=== PATIENT | male | born 1930 | race Caucasian/White ===

== ENCOUNTER 2019-04-14 23:28 | Emergency (ER) | payer OTHER ==
[~2019-04-14] VITALS: Ht 182.9 cm; Wt 111.1 kg
[2019-04-14] MEDS ORDERED: SULFASALAZINE500 M4 PO (23:38)
[2019-04-14] MEDS ORDERED: MOBIC15 MG PO (23:39)
[2019-04-14] MEDS ORDERED: CYMBALTA60 MG PO (23:39)
[2019-04-14] MEDS ORDERED: FLOMAX0.4 MG PO (23:40)
[2019-04-14] MEDS ORDERED: NEURONTIN 300M300 M2 PO (23:41)
[2019-04-14] MEDS ORDERED: FLORINEF ACETA0.1 MG PO (23:41)
[2019-04-14] MEDS ORDERED: MIDODRINE HCL10 MG PO (23:42)
[2019-04-14] MEDS ORDERED: PRAVACHOL20 MG PO (23:42)
[2019-04-14] MEDS ORDERED: SYMBICORT160 MCG/4. INH (23:43)
[2019-04-14] MEDS ORDERED: IPRAT-ALBUT 0.5-3 ML INH (23:43)
[2019-04-14] MEDS ORDERED: BREO ELLIPTA 11 EACH INH (23:44)
[2019-04-14] MEDS ORDERED: NAMENDA 10 MG T10 MG PO ×2 (23:45)
[2019-04-14] MEDS ORDERED: DEPAKOTE125 MG PO (23:46)
[2019-04-14] MEDS ORDERED: MELATONIN3 MG PO (23:46)
[2019-04-15 00:46] LABS: BASOPHILS 0.7 % (0.0-2.0); EOSINOPHILS 5.1 % (0.0-3.0); HEMATOCRIT 39.6 % (42.0-52.0); HEMOGLOBIN 12.9 gm/dL (14.0-18.0); LYMPHOCYTES 27.6 % (24.0-44.0); MCH 29.9 pg (26.0-34.0); MCHC 32.6 g/dL (28.0-37.0); MCV 91.6 fL (80.0-100.0); PLATELET COUNT 262 thou/uL (150-400); POLYS 58.6 % (36.0-66.0); RBC 4.33 mil/uL (4.50-6.00); RDW 15.2 % (10.5-14.5); WBC 10.3 thou/uL (4.0-11.0)
[2019-04-15 00:49] LABS: URINE BILIRUBIN NEGATIVE (Negative); URINE BLOOD NEGATIVE (Negative); URINE CLARITY CLEAR; URINE COLOR YELLOW; URINE GLUCOSE-RANDOM* NEGATIVE (Negative); URINE KETONES NEGATIVE (Negative); URINE LEUKOCYTES-REFLEX NEGATIVE (Negative); URINE NITRITE-REFLEX NEGATIVE (Negative); URINE PROTEIN (DIPSTICK) NEGATIVE (Negative); URINE SPECIFIC GRAVITY <= 1.005 (1.005-1.035); URINE UROBILINOGEN 0.2 E.U./dl (0.2-1.0)
[2019-04-15 00:53] LABS: ANION GAP 2 mmol/L (7-16); BUN 19 mg/dL (7-18); CALCIUM 8.8 mg/dL (8.5-10.1); CHLORIDE 99 mmol/L (98-107); CO2 31 mmol/L (21-32); GLUCOSE 129 mg/dL (74-106); POTASSIUM 3.3 mmol/L (3.5-5.1); SODIUM 132 mmol/L (136-145)
[2019-04-15 01:02] LABS: MAGNESIUM 2.4 mg/dL (1.8-2.4); TROPONIN-I <0.06 ng/mL (<0.06)
[2019-04-15 03:00] VITALS: BP 168/92
--- NOTE | 2019-04-15 14:30 | EKG ---
[place] [address] [facility] [place] [address] ELECTROCARDIOGRAM REPORT Name: MARLOYASMINEDENISE [facility] #: [facility]P [id number] ������������������ Admission: 04/14/19 ������������������ Attend Phys: Discharge: 04/15/19 ������������������ Date of : [birth year] Report #: [id number] ����������������������������������������������������������������� [id number] THIS REPORT FOR: //name// [facility] ED Test Date: 2019-04-14 Test Time: 23:56:05 Pat Name: DENISE CASAS Department: Room: Gender: Educational Administrator: BAILEE : 1930 Requested By: Jr Parry Order Number: [id number] MD: Armani Palomino Measurements Intervals [place] Rate: 85 P: 75 AL: 234 QRS: -68 QRSD: 137 T: 61 QT: 399 QTc: 475 Interpretive Statements Sinus rhythm Prolonged AL interval RBBB and LAFB No previous ECG available for comparison Electronically Signed On 04-15-2019 14:30:07 CDT by Armani Palomino [email or web address] ��������������������������������������������� <ELECTRONICALLY SIGNED> ���������������������������������������� By: Armani Palomino MD, [facility] ��������������������������������������������� 04/15/19 1430 2356 2356 Armani Palomino MD, FAC /EPI
== END 2019-04-15 03:00 | disposition home or self-care (01) ==
LOC: ER 23:28
PROVIDERS: Emergency Medicine
DX: S01.81XA Laceration without foreign body of other part of head, initial encounter (principal); I15.9 Secondary hypertension, unspecified; N18.9 Chronic kidney disease, unspecified; F32.9 Major depressive disorder, single episode, unspecified; I25.10 Atherosclerotic heart disease of native coronary artery without angina pectoris; J44.9 Chronic obstructive pulmonary disease, unspecified; M13.0 Polyarthritis, unspecified; G62.9 Polyneuropathy, unspecified; N40.0 Benign prostatic hyperplasia without lower urinary tract symptoms; Z88.1 Allergy status to other antibiotic agents; W18.39XA Other fall on same level, initial encounter; Y93.89 Activity, other specified; Y92.129 Unspecified place in nursing home as the place of occurrence of the external cause; Y99.8 Other external cause status

== ENCOUNTER 2019-05-05 22:49 | Inpatient (IN) | payer OTHER ==
[~2019-05-05] VITALS: Ht 182.9 cm; Wt 99.7 kg
[~2019-05-05 22:49] MED LIST: BREO ELLIPTA 11 EACH INH; CYMBALTA60 MG PO; DEPAKOTE125 MG PO; FLOMAX0.4 MG PO; FLORINEF ACETA0.1 MG PO; IPRAT-ALBUT 0.5-3 ML INH; MELATONIN3 MG PO; MIDODRINE HCL10 MG PO; MOBIC15 MG PO; NAMENDA 10 MG T10 MG PO; NEURONTIN 300M300 M2 PO; PRAVACHOL20 MG PO; SULFASALAZINE500 M4 PO; SYMBICORT160 MCG/4. INH
[2019-05-05 22:50] VITALS: BP 127/55
[2019-05-05 23:29] LABS: HEMATOCRIT 36.7 % (42.0-52.0); HEMOGLOBIN 11.7 gm/dL (14.0-18.0); MCH 28.7 pg (26.0-34.0); MCHC 31.8 g/dL (28.0-37.0); MCV 90.3 fL (80.0-100.0); PLATELET COUNT 285 thou/uL (150-400); RBC 4.07 mil/uL (4.50-6.00); RDW 14.7 % (10.5-14.5); WBC 11.9 thou/uL (4.0-11.0)
[2019-05-05 23:35] LABS: ANION GAP 9 mmol/L (7-16); BUN 25 mg/dL (7-18); CALCIUM 8.3 mg/dL (8.5-10.1); CHLORIDE 104 mmol/L (98-107); CO2 33 mmol/L (21-32); CREATININE 1.4 mg/dL (0.7-1.3); GLUCOSE 130 mg/dL (74-106); POTASSIUM 3.2 mmol/L (3.5-5.1); SODIUM 146 mmol/L (136-145)
[2019-05-05 23:37] LABS: BE(vivo) 4.3 mmol/L (-2 to +3); HCO3 28.5 mmol/L (22.0-26.0); PCO2 41.3 mmHg (35.0-45.0); PO2 78.2 mmHg (80.0-100.0); pH 7.457 (7.360-7.450); sO2 96.1 % (92.0-98.0)
[2019-05-05 23:44] LABS: TROPONIN-I <0.06 ng/mL (<0.06)
[2019-05-05] MEDS ORDERED: MUCINEX1200 MG PO (23:55)
[2019-05-06] VITALS (7 sets, daily range): BP systolic 128–148; BP diastolic 46–72
[2019-05-06 00:14] LABS: ABSOLUTE NEUTROPHILS 6.7 thou/uL (1.4-8.2); ATYPICAL LYMPHS 2 %; MYELOCYTES 1 %
[2019-05-06 00:36] LABS: URINE BILIRUBIN 1+ (Negative); URINE BLOOD 2+ (Negative); URINE CLARITY CLEAR; URINE COLOR YELLOW; URINE GLUCOSE-RANDOM* NEGATIVE (Negative); URINE KETONES TRACE (Negative); URINE PROTEIN (DIPSTICK) 2+ (Negative); URINE SPECIFIC GRAVITY 1.025 (1.005-1.035)
[2019-05-06 00:40] LABS: URINE LEUKOCYTES-REFLEX 2+ (Negative); URINE NITRITE-REFLEX POSITIVE (Negative)
[2019-05-06 00:42] LABS: ICTOTEST (BILI CONFIRMATORY) Positive (Negative)
[2019-05-06 00:44] LABS: CASTS None Seen /LPF (None Seen); MUCUS 4-6 Moderate strn/LPF (None Seen); SQUAMOUS None Seen /LPF (0-3); URINE WBC-REFLEX >25 Many /HPF (0-5)
[2019-05-06 00:45] LABS: BACTERIA-REFLEX >30 Many /HPF (None Seen); CRYSTALS None Seen /LPF (None Seen); TRANSITIONAL EPITHEL CELL 0-3 Few /LPF (None Seen)
--- NOTE | 2019-05-06 04:19 | NUR ---
PT WAS AN ER ADMIT. PT WAS ADMITTED FROM [facility]. PT IS UNAROUSABLE. DAUGHTER AT BEDSIDE. DAUGHTER ANSWERED QUESTIONS. NO SIGN OF DISTRESS NOTED IN PT. ADMISSION ASSESSMENT COMPLETED AND CHARTED. PHYSICIAN WAS PAGED THROUGH ANSWERING SERVICE FOR LOW POTASSIUM LEVEL TWICE BUT THERE WAS NO REPLY FROM ANSWERING SERVICE. PT IS STABLE. FALL PRECAUTIONS ARE IN PLACE. CONTINUE TO MONITOR PATIENT, DENIES ANY OTHER NEEDS AT THIS TIME.
[2019-05-06 11:28] LABS: CALCIUM 8.1 mg/dL (8.5-10.1); CREATININE 1.1 mg/dL (0.7-1.3); POTASSIUM 3.5 mmol/L (3.5-5.1)
--- NOTE | 2019-05-06 12:35 | NUR ---
care of pt assumed this am @ ~0700. pt noted to be sleeping quietly and comfortably this am. awakened by staff after passing of report and noted pt to be incontinent of bowel and bladder. ext male catheter applied this am. pt had a bm this am. pt non verbal when asked questions this am, but does follow simple commands, tracks staff. pt quiet and calm when resting in bed. pt's daughter at bs (she did stay the noc). pt's daughter enjoyed meeting and talking w/ dr. mora this am (as she had never met him before), stating "this whole fdc is new to me". pt npo, no hx of aspiration pneumonia, no n/v/d at this time. pt on oxygen, but being tirtrated off today. pt w/o s/s of discomfort or pain. pt w/ several family members at bs around lunch time. pt awake and verbally engaging w/ his family members and watching tv. pt states "i need to go to the bathroom", pt stating he needs to urinate, informed of ext condom catheter in place.
--- NOTE | 2019-05-06 13:28 | EKG ---
[address] [place] [address] ELECTROCARDIOGRAM REPORT Name: DENISE CASAS Room #: 362-P ADM IN M.R.#: [id number] Admission: 05/06/19 Attend Phys: Maria C Reed MD Discharge: Date of : [birth year] Report #: [id number] THIS REPORT FOR: //name// [facility] ED Test Date: 2019-05-05 Test Time: 23:10:20 Pat Name: DENISE CASAS Department: Room: [facility] Gender: M Restaurant Area Manager: MIGUEL : 1930 Requested By: Gautam Don Order Number: [id number] MD: Armani Palomino Measurements Intervals [place] Rate: 91 P: 65 CT: 40 QRS: -76 QRSD: 147 T: 80 QT: 401 QTc: 494 Interpretive Statements Sinus rhythm RBBB and LAFB Artifact in lead(s) I,II,III,aVR,aVL,aVF,V1 Compared to ECG 04/14/2019 23:56:05 No significant change was found Electronically Signed On 05-06-2019 13:28:06 CDT by Armani Palomino [email or web address] <ELECTRONICALLY SIGNED> By: Armani Palomino MD, [facility] 05/06/19 1328 2310 2310 Armani Palomino MD, [facility] /EPI
[2019-05-07 03:41] VITALS: BP 150/70
--- NOTE | 2019-05-07 04:49 | NUR ---
resting quietly tonight. denies pain. he is oriented to at least person and place. he is cooperative and calm. careplan reviewed,
[2019-05-07 05:12] LABS: ABSOLUTE NEUTROPHILS 8.3 thou/uL (1.4-8.2); BASOPHILS 0.1 % (0.0-2.0); HEMATOCRIT 32.5 % (42.0-52.0); HEMOGLOBIN 10.4 gm/dL (14.0-18.0); LYMPHOCYTES 16.9 % (24.0-44.0); MCV 90.8 fL (80.0-100.0); MONOCYTES 6.1 % (1.0-8.0); PLATELET COUNT 267 thou/uL (150-400); POLYS 76.9 % (36.0-66.0); RBC 3.58 mil/uL (4.50-6.00); RDW 14.3 % (10.5-14.5); WBC 10.8 thou/uL (4.0-11.0)
[2019-05-07 05:22] LABS: CALCIUM 8.1 mg/dL (8.5-10.1); POTASSIUM 3.4 mmol/L (3.5-5.1)
[2019-05-07 07:50] VITALS: BP 150/67
--- NOTE | 2019-05-07 09:04 | H ---
[facility] [place] [address] HISTORY AND PHYSICAL Name: MARLOYASMINEDENISE Tc Room #: 362-P ADM IN M.R.#: [id number] Admission: 05/06/19 Attend Phys: Maria C Reed MD Discharge: Date of : [birth year] Report #: [id number] THIS REPORT FOR: //name// CC: Maria C Reed DATE OF SERVICE: 05/06/2019 HISTORY OF PRESENT ILLNESS: The patient is an 88-year-old male who was brought to the Emergency Room for altered mental status and being unresponsive. The patient's information was obtained from his daughter more than anything. The patient became unresponsive according to the daughter by Tuesday. He was not getting out of bed. He is not eating, but he continued to breathe fairly well and daughter was called to find out if she wants to keep him as a comfort care in the assisted facility or transferred to the Emergency Room and the decision was made to bring the patient to the Emergency Room. The patient continued to be unresponsive in the Emergency Room. The patient had chest x-ray done last Tuesday where they could not find anything major on him besides some fluid overload and he was treated with Lasix. The patient was functioning fairly well from Tuesday till , but he started to have deterioration on Tuesday. The patient was not having any fever or chills. He was not having any increasing coughing or any increasing shortness of breath. PAST MEDICAL HISTORY: Significant for pneumonia that happened at the beginning of the year. The patient has a history of urinary tract infection that was treated a month ago. History of orthostatic hypotension, syncopal episode, chronic obstructive pulmonary disease, muscle weakness and dementia and dementia became much worse since January. The patient had a history of chronic kidney disease, abdominal aortic aneurysm and osteoarthritis, major depression, polyneuropathy, atherosclerotic heart disease, benign prostatic hypertrophy and Crohn disease. The patient had a history of surgery on his back and ear surgery. MEDICATIONS: Reviewed and they are on hold. ALLERGIES: To PENICILLIN. SOCIAL HISTORY: The patient is a former smoker. No history of alcohol or drug use. FAMILY HISTORY: Noncontributory. REVIEW OF SYSTEMS: Unobtainable. PHYSICAL EXAMINATION: VITAL SIGNS: The patient's temperature is 36.8, pulse 93, respirations 19, blood pressure 127/55 and his oxygen was 95%. [address] [address] HISTORY AND PHYSICAL Name: DENISE CASAS Room #: 362-P [facility] [place] ..#: [id number] Admission: 05/06/19 Attend Phys: Maria C Reed MD Discharge: Date of : [birth year] Report #: [id number] HEAD AND NECK: Remarkable for dry mucous membranes. NECK: Supple. LUNGS: Clear to auscultation. CARDIAC: S1, S2. ABDOMEN: Benign. Bowel sounds were positive. EXTREMITIES: Without any edema. LABORATORY DATA: A 12-lead EKG showed short ID interval, probable left atrial enlargement, right bundle branch block with left anterior hemiblock. ABGs showed a pH of 7.45, pCO2 of 41, pO2 of 78.2 and oxygen saturation was 94% that was on 4 liters of oxygen. Basic metabolic panel showed a sodium of 146, potassium 3.2, chloride 104, bicarbonate 33, anion gap 9, BUN 25, creatinine 1.4, glucose 130, calcium 8.3. Troponin less than 0.06. Repeated BNP is 4145. CBC showed a white count of 11.9, hemoglobin 11.7, hematocrit 36.7, platelet count 285, neutrophils are 55%, with 1% band. Urinalysis showed +2 protein, trace ketones, +1 bilirubin, blood +2, positive nitrite. White blood cells more than 25, red blood cells 11-20. Magnesium is 2.5. CT of the head mild periventricular microvascular ischemia with slight volume loss. No findings of acute intracranial abnormalities. There is layering fluid within the right maxillary sinus suggesting acute right maxillary sinusitis disease. Chest x-ray showed interstitial fibrosis with findings similar to what was diagnosed on 04/14/2019, left lower lobe lateral atelectasis, questionable infiltration without obscuring of the left diaphragm and it is similar to study from 04/14/2019. CT scan of the chest showed no findings of acute pulmonary abnormalities. Minimal pleural thickening, basilar atelectasis felt to account for the slight density on the x-ray. ASSESSMENT: 1. Altered mental status. 2. Urinary tract infection. 3. Dementia. 4. Chronic obstructive pulmonary disease. 5. Orthostatic hypotension. 6. Benign prostatic hypertrophy. PLAN: The patient was admitted to the hospital with the above-mentioned diagnoses. I will continue holding the patient's home medications, but I will start the patient on IV hydration. The patient was started on Rocephin in the Emergency Room and he is to continue with that. The patient was started on albuterol and Solu-Medrol. I am not convinced that the patient had an actual COPD exacerbation. For this reason, I will stop the Solu-Medrol. The patient to continue the IV hydration. We will continue to monitor the patient. I discussed the patient's plan with his daughter. Also we discussed the advanced directives for the patient and she is in agreement to have the patient as DNR and if the patient's respiratory symptoms worsen, he is to not to intubate. We will continue to monitor the patient. I will have physical therapy and [facility] [address] [place] [address] HISTORY AND PHYSICAL Name: MARLOYASMINEDENISE Tc Room #: 362-P ADM IN [facility]#: [id number] Admission: 05/06/19 Attend Phys: Maria C Reed MD Discharge: Date of : [birth year] Report #: [id number] occupational therapy to work with the patient. I will have the patient started on Lovenox for DVT prophylaxis. <ELECTRONICALLY SIGNED> By: Maria C Reed MD 05/07/19 0904 0851 1022 Maria C Reed MD /nt
--- NOTE | 2019-05-07 09:46 | NUR ---
WOUND CARE CONSULT; UPON ASSESSMENT, THE LEFT BRAXTON HAD NO WOUND. THE RIGHT BRAXTON HAD A LOOSLEY ADHERENT SCAB THAT EASILY WAS REMOVED REVEALING HEALED HEALTH SKIN. RECOMMENDATION; NO WOUNDS I WILL SIGN OFF. RECONSULT IF NEEDED. DISCUSSED WITH ELECTRIC METER REPAIRER APPRENTICE
[2019-05-07 10:55] VITALS: BP 154/74
--- NOTE | 2019-05-07 12:09 | NUR ---
ASSESSMENT: CM REVIEWED CHART AND MET WITH PATIENT AT THE BEDSIDE. PT IS A LTC RESIDENT FROM [facility]. PT USES A WHEELCHAIR THERE FOR AMBULATION. PT WAS ADMITTED WITH UTI/COPD EXACERBATION. CM SPOKE WITH PATIENTS DAUGHTER PHYLLIS AND PLAN IS FOR PATIENT TO RETURN TO [facility] ONCE MEDICALLY STABLE. CM SPOKE WITH NOELLE MOONEY FOR [facility] WHO STATES PATIENT HAD BEEN TRYING TO HIT THE NURSES AT HIS FACILITY. CM FAXED UPDATED CLINICAL OVER TO [facility]. CM WILL CONTINUE TO FOLLOW TO ASSIST NEEDED.
--- NOTE | 2019-05-07 12:55 | NUR ---
care of pt assumed this am @ ~0700. pt noted to be very restless, forgetful and confused this am. pt requesting liquids to drink. pt w/ numerous attempts to get out of bed stating "i'm getting up" "i've got to go". phone call to pt's daughter to update on her father's condition. pt w/ evaluations from ot and pt and st today. npo breakfast, but diet of regular mechanical ground w/ honey thick liquids for lunch. pt took his po medications w/ applesauce and honey thick liquids, but choose to chew up the medications instead of swallow. pt states he can not swallow the pills whole, but prefers to chew them up.
[2019-05-07 19:18] VITALS: BP 159/76
--- NOTE | 2019-05-08 03:40 | NUR ---
continues to be confused, he is aware of person and place maximum. denies pain. ivf's, cooperative with honey thick liquids. careplan reviewed. progressing toward discharge goals.
[2019-05-08 04:25] VITALS: BP 141/69
[2019-05-08 06:14] LABS: ABSOLUTE NEUTROPHILS 5.9 thou/uL (1.4-8.2); BASOPHILS 0.2 % (0.0-2.0); EOSINOPHILS 0.1 % (0.0-3.0); HEMATOCRIT 33.3 % (42.0-52.0); HEMOGLOBIN 10.7 gm/dL (14.0-18.0); LYMPHOCYTES 27.3 % (24.0-44.0); MCH 29.3 pg (26.0-34.0); MCV 91.6 fL (80.0-100.0); MONOCYTES 9.7 % (1.0-8.0); PLATELET COUNT 277 thou/uL (150-400); POLYS 62.7 % (36.0-66.0); RBC 3.63 mil/uL (4.50-6.00); RDW 14.5 % (10.5-14.5); WBC 9.5 thou/uL (4.0-11.0)
[2019-05-08 06:23] LABS: CALCIUM 8.3 mg/dL (8.5-10.1); CREATININE 0.9 mg/dL (0.7-1.3); POTASSIUM 3.9 mmol/L (3.5-5.1)
[2019-05-08 07:42] VITALS: BP 157/76
[2019-05-08 13:03] VITALS: BP 164/79
--- NOTE | 2019-05-08 13:33 | NUR ---
ON-GOING ASSESSMENT: CM REVIEWED CHART AND SPOKE WITH ATTENDING. PT IS SLOWLY PROGRESSING TOWARDS DISCHARGE GOALS. PLANS ARE TO RETURN TO [facility] ONCE MEDICALLY STABLE. CM WILL CONTINUE TO FOLLOW TO ASSIST NEEDED.
[2019-05-08 16:00] VITALS: BP 147/69
[2019-05-08 19:28] VITALS: BP 154/75
[2019-05-09 04:13] VITALS: BP 155/74
[2019-05-09 06:16] LABS: ABSOLUTE NEUTROPHILS 4.9 thou/uL (1.4-8.2); BASOPHILS 0.5 % (0.0-2.0); EOSINOPHILS 1.7 % (0.0-3.0); HEMOGLOBIN 10.2 gm/dL (14.0-18.0); LYMPHOCYTES 26.4 % (24.0-44.0); MCH 29.8 pg (26.0-34.0); MCHC 32.9 g/dL (28.0-37.0); MCV 90.6 fL (80.0-100.0); MONOCYTES 9.4 % (1.0-8.0); PLATELET COUNT 247 thou/uL (150-400); RBC 3.42 mil/uL (4.50-6.00); RDW 14.4 % (10.5-14.5); WBC 7.9 thou/uL (4.0-11.0)
[2019-05-09 06:30] LABS: CALCIUM 7.9 mg/dL (8.5-10.1); CREATININE 0.9 mg/dL (0.7-1.3); POTASSIUM 3.7 mmol/L (3.5-5.1)
[2019-05-09 07:22] VITALS: BP 151/74
--- NOTE | 2019-05-09 07:32 | NUR ---
PATIENT IS PROGRESSING SLOWLY IN HIS CARE PLAN. VITAL SIGNS STABLE WITH PATIENT HAVING NO COMPLAINTS, NOR NURSE PERCEIVING ANY PAIN OR NAUSEA. PATIENT SUFFERS FROM DEMENTIA AND IS ORIENTED TO SELF AND SOMETIMES LOCATION AND IS UNABLE TO CALL APPROPRIATELY FOR NEEDS. BREATHING STABLE ON OXYGEN EVIDENCED BY ASSESSMENT AND SPOT OXYGENATION CHECKS. PATIENT TURNED FREQUENTLY WITH BARRIER CREAM APPLIED. MULTIPLE BOUTS OF URINARY INCONTINENCE FOR WHICH PATIENT WAS CLEANED. SWALLOW PRECAUTIONS FOLLOWED. CONTINUE PLAN OF CARE
--- NOTE | 2019-05-09 09:47 | NUR ---
ON-GOING ASSESSMENT: CM REVIEWED CHART. PER ATTENDINGS NOTE PATIENT IS STILL WHEEZING. CM FAXED UPDATED CLINICAL TO [facility] TO KEEP THEM UPDATED. CM WILL CONTINUE TO FOLLOW TO ASSIST NEEDED.
--- NOTE | 2019-05-09 10:22 | NUR ---
PT DROWSY THIS MORNING, FINALLY ABLE TO GET PT TO STAY AWAKE LONG ENOUGH TO TAKE PILLS. PILLS GIVEN IN APPLESAUCE WITH PT SITTING UPRIGHT. PT CHEWED AND POCKETED PILLS BUT GOT THEM DOWN AFTER SOME INSTRUCTION, A FEW MORE SPOONS OF APPLESAUCE AND SOME SIPS OF HONEY THICK WATER.
[2019-05-09 11:21] VITALS: BP 154/75
[2019-05-09 15:39] VITALS: BP 150/73
--- NOTE | 2019-05-09 17:50 | NUR ---
PT CONFUSED TODAY, UP IN CHAIR FOR A WHILE THIS AFTERNOON, PT TRANSFERRED TO CHAIR WITH PT AND BACK TO BED WITH NURSING THIS EVENING. PT HAD POOR APPETITE. ABLE TO BETTER SWALLOW PILLS THIS AFTERNOON. PT INCONTINENT OF URINE MULTIPLE TIMES TODAY.
[2019-05-09 19:53] VITALS: BP 152/58
[2019-05-10 03:47] VITALS: BP 132/47
--- NOTE | 2019-05-10 04:18 | NUR ---
PATIENT IS PROGRESSING SLOWLY IN HIS CARE PLAN. VITAL SIGNS STABLE WITH PATIENT STATING, NOR NURSE PERCEIVING, ANY PAIN OR NAUSEA. BREATHING STABLE ON ROOM AIR EVIDENCED BY ASSESSMENT AND SPOT OXYGENATION CHECKS. PATIENT REMAINS AT BASELINE WHICH IS ORIENTED TO SELF AND SOMETIMES LOCATION. SWALLOW PRECAUTIONS FOLLOWED WITH PATIENT OFFERED MANY OPPORTUNITIES AT REFRESHMENT. TURNS AND SKIN CARE PROVIDED FOR MULTIPLE BOUTS OF URINARY INCONTINENCE. PATIENT IS EXPECTED TO POSSIBLE DISCHARGE BACK TO [facility] TODAY. PATIENTS DAUGHTER WOULD LIKE TO SPEAK TO DOCTOR PRIOR TO DISCHARGE. CONTINUE PLAN OF CARE.
[2019-05-10 05:27] LABS: ABSOLUTE NEUTROPHILS 5.4 thou/uL (1.4-8.2); BASOPHILS 0.6 % (0.0-2.0); EOSINOPHILS 3.9 % (0.0-3.0); HEMATOCRIT 32.6 % (42.0-52.0); HEMOGLOBIN 10.8 gm/dL (14.0-18.0); LYMPHOCYTES 26.2 % (24.0-44.0); MCH 29.8 pg (26.0-34.0); MCHC 33.1 g/dL (28.0-37.0); MCV 90.1 fL (80.0-100.0); MONOCYTES 8.6 % (1.0-8.0); PLATELET COUNT 245 thou/uL (150-400); POLYS 60.7 % (36.0-66.0); RBC 3.61 mil/uL (4.50-6.00); RDW 14.2 % (10.5-14.5)
[2019-05-10 05:51] LABS: CALCIUM 7.7 mg/dL (8.5-10.1); CREATININE 0.8 mg/dL (0.7-1.3); POTASSIUM 3.9 mmol/L (3.5-5.1)
[2019-05-10 07:30] VITALS: BP 132/70
[2019-05-10] MEDS ORDERED: CEFUROXIME500 MG PO (07:51)
[2019-05-10] MEDS ORDERED: PAIN & FEVER325 MG PO (07:53)
[2019-05-10] MEDS ORDERED: NYSTATIN-TRIAMC15 GM TOP (07:54)
[2019-05-10 11:18] VITALS: BP 132/60
--- NOTE | 2019-05-10 11:46 | NUR ---
ON-GOING ASSESSMENT: PT HAS ORDERS TO DISCHARGE TO SNF AT [facility] TODAY. CM FAXED INFORMATION WELL UPDATED PROGRESS NOTES TO [facility]. CM SPOKE WITH JESE IN ADMISSIONS WHO STATES THEY ARE WORKING ON GETTING INSURANCE AUTH AND WILL CALL CM ONCE THEY HEAR BACK. CM UPDATED PATIENTS DAUGHTER PHYLLIS. DISCHARGE IS PENDING FOR TODAY PENDING INSURANCE AUTH.
[2019-05-10 15:28] VITALS: BP 145/70
--- NOTE | 2019-05-10 16:24 | NUR ---
Assumed care approx. 0700 this AM. Patient drowsy much of the day and has slept in the chair, not as impulsive today. Patient up x2 assist from bed to chair. Patient consuming some but not all of meals. Edema noted in upper extremities this afternoon. SR on the monitor. Maintenance fluids infusing per orders. Currently waiting on insurance auth and approval from facility for transfer which should hopefully be tomorrow. Flu shot administered per approval from patient's daughter. Case management made aware to let facility know, and injection card for proof of shot was added to chart copy for facility. Patient slowly progressing toward plan of care.
[2019-05-10 19:22] VITALS: BP 151/79
[2019-05-11 03:30] VITALS: BP 140/53
--- NOTE | 2019-05-11 05:34 | NUR ---
FOLLOWING POC WITH Q2 MOVEMENTS. PT IS INCONTINENT TO B/B WITH 4 BOUTS OF URINE INCONTINENCE. PT RECEIVED BED BATH THIS EVENING AND COMPLETE BED CHANGE. PT SLEPT COMFORTABLY ALL NIGHT WITHOUT ANY ISSUES. HOURLY ROUNDING.
[2019-05-11 08:11] VITALS: BP 157/76
--- NOTE | 2019-05-11 10:01 | NUR ---
on-going assessment: SAWYER WAS NOTIFIED BY JESE IN ADMISSIONS AT [facility] THAT [facility] HAD DENIED PATIENT FOR SNF AND THERE IS AN OPTION FOR PEER TO PEER BY CALLING [phone] REF#[id number]. SAWYER NOTIFIED DR. PASCAL WELL HIS BOILER TESTER WHO STATES SHE CALLED AND LEFT A VM WITH INSURANCE AND WAITING TO HEAR BACK AT THIS TIME.
[2019-05-11 11:51] VITALS: BP 144/62
[2019-05-11] MEDS ORDERED: MACROBID 100 M100 MG PO (12:59)
--- NOTE | 2019-05-11 13:03 | NUR ---
on-going assessmen: sawyer spoke with dr. mora who reports he completed the peer to peer and it was overturned and pt is now approved for snf. SAWYER SPOKE WITH JESE IN ADMISSIONS IN [facility] WHO STATES SHE HAS APPROVAL TO ACCEPT PT TO SNF NOW. SAWYER SPOKE WITH PATIENTS DAUGHTER PHYLLIS AND SHE REQUEST PT TRANSPORT AROUND 1600. CM NOTIFIED JSEE AND TRANSPORTATION HAS BEEN ARRANGED FOR 4PM. CM NOTIFIED BEDSIDE RN WELL PROVIDED NUMBER FOR REPORT. CHART COPY HAS BEEN ORDERED AND CM REQUESTED APPEALS AND GENERALIST CLERK UPDATE IT. PT HAS NO FURTHER QUESTIONS FOR CM PRIOR TO DISCHARGE.
--- NOTE | 2019-05-11 13:06 | NUR ---
ON-GOING ASSESSMENT: CM REVIEWED CHART AND SPOKE WITH ATTENDING. PTS MRI SHOWS OSTEO AND AWAITING RECOMMENDATIONS FROM SURGERY AT THIS TIME PATIENT MAY BENEFIT FROM [facility]. NO WEEKEND DISCHARGE ANTICIPATED. CM WILL CONTINUE TO FOLLOW TO ASSIST NEEDED.
[2019-05-11 16:05] VITALS: BP 175/88
--- NOTE | 2019-05-11 17:00 | NUR ---
RN was discharge to [facility] about 1620pm, pt is continuing o2 1L/min/nc, PT's vs and o2sat are stable, pt's daughter was here when pt D/C, PT did not has SOB and pain , RN had giving report to [place] nurse, and reminder new order po abx .
== END 2019-05-11 16:22 | DRG 689 ==
LOC: ER 22:49 → 3W 05-06 02:24 → EROBS 05-06 02:24 → 3W 05-06 02:45
PROVIDERS: Emergency Medicine; Nurse Practitioner Acute Care; ADMIT Internal Medicine
DX: N30.00 Acute cystitis without hematuria (principal); G92 Toxic encephalopathy; J96.21 Acute and chronic respiratory failure with hypoxia; N17.9 Acute kidney failure, unspecified; J44.1 Chronic obstructive pulmonary disease with (acute) exacerbation; F03.90 Unspecified dementia, unspecified severity, without behavioral disturbance, psychotic disturbance, mood disturbance, and anxiety; E87.6 Hypokalemia; Z66 Do not resuscitate; N18.9 Chronic kidney disease, unspecified; F32.9 Major depressive disorder, single episode, unspecified; M19.90 Unspecified osteoarthritis, unspecified site; I25.10 Atherosclerotic heart disease of native coronary artery without angina pectoris; I95.1 Orthostatic hypotension; R13.10 Dysphagia, unspecified; N40.0 Benign prostatic hyperplasia without lower urinary tract symptoms; G62.9 Polyneuropathy, unspecified; Z88.1 Allergy status to other antibiotic agents; Z87.891 Personal history of nicotine dependence; Z79.899 Other long term (current) drug therapy
CPT/HCPCS: 10879

== ENCOUNTER 2019-05-31 13:32 | Inpatient (IN) | payer OTHER ==
[~2019-05-31] VITALS: Ht 182.9 cm; Wt 87.5 kg
[~2019-05-31 13:32] MED LIST changes: +CEFUROXIME500 MG PO; +MACROBID 100 M100 MG PO; +MUCINEX1200 MG PO; +NYSTATIN-TRIAMC15 GM TOP; +PAIN & FEVER325 MG PO
[2019-05-31 13:33] VITALS: BP 170/52
[2019-05-31] MEDS ORDERED: NAMENDA 10 MG T10 MG PO (14:00)
[2019-05-31 14:31] LABS: BASOPHILS 0.5 % (0.0-2.0); EOSINOPHILS 0.5 % (0.0-3.0); HEMATOCRIT 34.5 % (42.0-52.0); HEMOGLOBIN 10.9 gm/dL (14.0-18.0); LYMPHOCYTES 10.7 % (24.0-44.0); MCH 28.4 pg (26.0-34.0); MCHC 31.6 g/dL (28.0-37.0); MCV 89.7 fL (80.0-100.0); MONOCYTES 8.8 % (1.0-8.0); PLATELET COUNT 218 thou/uL (150-400); POLYS 79.5 % (36.0-66.0); RBC 3.85 mil/uL (4.50-6.00); RDW 15.3 % (10.5-14.5); WBC 15.1 thou/uL (4.0-11.0)
[2019-05-31 14:47] LABS: ANION GAP 8 mmol/L (7-16); BUN 15 mg/dL (7-18); CALCIUM 8.6 mg/dL (8.5-10.1); CHLORIDE 103 mmol/L (98-107); CO2 32 mmol/L (21-32); CREATININE 1.2 mg/dL (0.7-1.3); GLUCOSE 160 mg/dL (74-106); SODIUM 143 mmol/L (136-145); TROPONIN-I <0.06 ng/mL (<0.06)
[2019-05-31 14:49] LABS: POTASSIUM 2.7 mmol/L (3.5-5.1)
[2019-05-31 16:26] LABS: URINE BILIRUBIN NEGATIVE (Negative); URINE BLOOD 3+ (Negative); URINE CLARITY CLEAR; URINE COLOR YELLOW; URINE GLUCOSE-RANDOM* NEGATIVE (Negative); URINE KETONES 1+ (Negative); URINE NITRITE-REFLEX NEGATIVE (Negative); URINE PROTEIN (DIPSTICK) 2+ (Negative)
[2019-05-31 16:27] LABS: URINE LEUKOCYTES-REFLEX 3+ (Negative)
[2019-05-31 16:39] LABS: BACTERIA-REFLEX 1-9 Few /HPF (None Seen); CASTS None Seen /LPF (None Seen); CRYSTALS None Seen /LPF (None Seen); SQUAMOUS 0-3 Few /LPF (0-3); URINE RBC 0-2 Rare /HPF (0-2); URINE WBC-REFLEX >25 Many /HPF (0-5); WBC CLUMPS Packed (None Seen)
--- NOTE | 2019-05-31 17:48 | EKG ---
[address] [place] [address] ELECTROCARDIOGRAM REPORT Name: MARLOYASMINEDENISE Room #: 170-9 ADM IN M.R.#: [id number] Admission: 05/31/19 Attend Phys: Maria C Reed MD Discharge: Date of : [birth year] Report #: [id number] THIS REPORT FOR: //name// [facility] ED Test Date: 2019-05-31 Test Time: 13:55:48 Pat Name: DENISE CASAS Department: Room: 170 Gender: M Sorting Machine Operator: NICKI : 1930 Requested By: Jr Parry Order Number: [id number] MD: Armani Palomino Measurements Intervals [place] Rate: 104 P: 50 NC: 197 QRS: -72 QRSD: 162 T: 58 QT: 376 QTc: 495 Interpretive Statements Sinus tachycardia RBBB and LAFB Compared to ECG 05/05/2019 23:10:20 No significant change was found Electronically Signed On 05-31-2019 17:47:54 CDT by Armani Palomino [email or web address] <ELECTRONICALLY SIGNED> By: Armani Palomino MD, [facility] 05/31/19 1747 1355 1355 Armani Palomino MD, FAC /EPI
[2019-05-31 18:11] VITALS: BP 122/55
[2019-05-31 18:44] VITALS: BP 128/60
[2019-05-31 19:03] VITALS: BP 134/74
--- NOTE | 2019-05-31 20:02 | NUR ---
PATIENT ADMIT TO UNIT AT 1900. CONFUSED AND COMBATIVE. GOT ORDER FROM DR PASCAL. STARTED PADILLA RESTARINT. REPORT GIVEN TO COMING RN
[2019-05-31 21:45] VITALS: BP 138/78
[2019-05-31 23:51] VITALS: BP 136/97
--- NOTE | 2019-06-01 04:57 | NUR ---
.PT ADMIT FROM ER AND ARRIVED VIA CART. PT WAS PLACED IN RESTRAINTS DUE TO PULLING AT EQUIPMENT, DUE TO PT TRYING STRIKE WITH FIST AT STAFF. FALLING RESTRAINT POC. PLACED EXTERNAL CONDOM CATH ON PT AND HE REMOVED IT. PT INCONTINENT TO BLADDER AND AND BOWEL OVER THE EVENING SHIFT. ADMISSION COMPLETED, WOUND CARE PICTURES TAKEN, AND CARE PLAN INITIATED. FOLLOWING POC WITH IVF/IVPB. AT 0400 ROUNDING, CLEANED PT UP AND STOPPED FLUIDS DUE TO PT SOUNDING WET, WHICH WAS CONFIRMED BY 2ND NURSE. WILL SPEAK TO DR. PASCAL ABOUT PT. PT IS A/0 TO SELF AND VERY CONFUSED. FALL PRECAUTIONS IN PLACE. PT USES WHEELCHAIR AT [facility], AND IS IMPULSIVE AND WILL TRY TO EXIT THE WHEEL CHAIR. LOOKED BACK AT PREVIOUS ADMISSION ON 05/09/19 TO RETRIEVE DIET ORDER. VSS AND FEVER FREE AT THIS TIME. HOURLY ROUNDING.
[2019-06-01 05:10] LABS: HEMATOCRIT 31.5 % (42.0-52.0); HEMOGLOBIN 10.2 gm/dL (14.0-18.0); MCH 28.9 pg (26.0-34.0); MCHC 32.3 g/dL (28.0-37.0); MCV 89.6 fL (80.0-100.0); RBC 3.52 mil/uL (4.50-6.00); RDW 15.2 % (10.5-14.5)
[2019-06-01 05:30] LABS: CALCIUM 8.1 mg/dL (8.5-10.1); POTASSIUM 3.1 mmol/L (3.5-5.1)
[2019-06-01 07:51] VITALS: BP 143/62
--- NOTE | 2019-06-01 12:55 | NUR ---
INITIAL ASSESSMENT: Received consult due to pt being admitted from a nursing facility. GEMMA reviewed chart and spoke with nursing and attending physician's CRESTER. Pt was admitted from [facility] SNF due to sepsis/UTI/delirium. Pt is currently on IV abx. GEMMA spoke with pt's dtr, Chyna, via phone. Introduced role of GEMMA. Pt normally lives in the manager intermediate care unit at [facility], but has been using his skilled benefit since 05/11. Plan is for pt to return to [facility] when medically stable. No weekend discharge planned. tool and production planner to fax clinical info to [facility] for review. GEMMA spoke with Ailyn in admissions, who confirms they will accept pt back. Pt was about ready to be discharged from the skilled services. [facility] can submit for insurance auth for continued skilled services if needed. GEMMA is following to assist as needed with discharge planning.
--- NOTE | 2019-06-01 14:10 | NUR ---
DISCHARGE PLANNING. POST ACUTE RECOMMENDED AT DISCHARGE. PATIENT REFERRAL FAXED TO [facility] PER REQUEST. CALL PLACED TO [facility]IONS LIAISON TO NOTIFY. ANTICIPATED DISCHARGE IS PLANNED FOR TUESDAY. JESE JOHNSON. JESE TO REVIEW PATIENT REFERRAL AND NOTIFY CM. FOLLOWING.
[2019-06-01 16:07] VITALS: BP 143/48
[2019-06-01 20:11] VITALS: BP 151/62
--- NOTE | 2019-06-01 20:17 | NUR ---
ASSUMED PATIENT CARE AT 0700. AWAKE. AGIATED AND RESTLESS. ON RESTARINT. SOB WITH LABORED BREATH. NOT TOWARDS POC GOALS.
[2019-06-02 04:29] VITALS: BP 171/70
[2019-06-02 07:34] VITALS: BP 141/65
--- NOTE | 2019-06-02 07:50 | NUR ---
PATIENT IS CONFUSED. DC RESTRAINTS AT 2144. PATIENT IS APPROIPATE WITH MEDICATION. PAITENT IS INCONTIENT. PAITENT IS NSR C BBB ON TELE. PAITENT IS Q2TURN. PATINET IS ON 2L NC. PATIENT IS ROOM AIR BASELINE. PATIENT CAN BE AGGRESSIVE AT TIMES. PATIENT IS RESTING COMFORTABLY IN BED. WCM. PATIENT IS PROGRESSING TO GOALS. WCM.
[2019-06-02 07:51] LABS: HEMATOCRIT 33.3 % (42.0-52.0); HEMOGLOBIN 10.6 gm/dL (14.0-18.0); MCH 28.6 pg (26.0-34.0); MCHC 31.8 g/dL (28.0-37.0); MCV 89.9 fL (80.0-100.0); RBC 3.71 mil/uL (4.50-6.00); RDW 15.7 % (10.5-14.5); WBC 11.5 thou/uL (4.0-11.0)
[2019-06-02 08:04] LABS: CALCIUM 8.3 mg/dL (8.5-10.1); POTASSIUM 3.3 mmol/L (3.5-5.1)
[2019-06-02 15:53] VITALS: BP 154/60
[2019-06-02 20:30] VITALS: BP 144/62
[2019-06-03 03:11] VITALS: BP 156/74
[2019-06-03 06:07] LABS: ABSOLUTE NEUTROPHILS 6.3 thou/uL (1.4-8.2); BASOPHILS 0.8 % (0.0-2.0); EOSINOPHILS 1.4 % (0.0-3.0); HEMATOCRIT 32.3 % (42.0-52.0); HEMOGLOBIN 10.4 gm/dL (14.0-18.0); LYMPHOCYTES 24.5 % (24.0-44.0); MCHC 32.2 g/dL (28.0-37.0); MCV 89.9 fL (80.0-100.0); MONOCYTES 10.8 % (1.0-8.0); PLATELET COUNT 276 thou/uL (150-400); POLYS 62.5 % (36.0-66.0); RBC 3.59 mil/uL (4.50-6.00); RDW 15.3 % (10.5-14.5); WBC 10.1 thou/uL (4.0-11.0)
[2019-06-03 06:21] LABS: CALCIUM 8.5 mg/dL (8.5-10.1); CREATININE 0.8 mg/dL (0.7-1.3); POTASSIUM 3.1 mmol/L (3.5-5.1)
--- NOTE | 2019-06-03 06:33 | NUR ---
SLEPT PART OF SHIFT. GETS ANXIOUS AT TIMES AND HAS SOME STRIDER WITH O2 SATS 95% HALDOL GIVEN FOR BEHAVIOR AND ANXIETY WHICH CALMS PATIENT AND HIS BREATHING. PATIENT COOPERATIVE AT TIMES AND COMBATIVE AT TIMES. WORKING ON GOALS AND PLAN OF CARE FOR NOC. NOT PROGRESSING TOWARDS DISCHARGE GOALS AT THIS TIME. REPOSITIONED AND ERICH CARE DONE EVERY 2-3 HOURS FOR COMFORT AND SKIN CARE. REMAINS ORIENTED TO SELF ONLY. CONTINUE TO MONITOR CLOSELY.
[2019-06-03 07:38] VITALS: BP 188/82
--- NOTE | 2019-06-03 14:34 | NUR ---
SPOKE TO DAUGHTER ABOUT PLAN OF CARE. DAUGHTER WOULD LIKE TO SPEAK WITH DR. APSCAL TOMORROW ABOUT ANTICIPATED DISCHARGE.
[2019-06-03 15:23] VITALS: BP 147/89
--- NOTE | 2019-06-03 18:31 | NUR ---
PATIENT CONFUSED DURING BEGINNING OF THE SHIFT, REFUSED BREAKFAST. PATIENT ATE 100% OF LUNCH AND DINNER ALONG WITH MAGIC ICE CREAM. MORE ALERT WHEN VISITATION FROM FAMILY. PLAN OF CARE DISCUSSED WITH FAMILY. NO SIGNS OF ACUTE DISTRESS NOTED AT THIS TIME. WILL CONTINUE TO MONITOR.
[2019-06-03 19:38] VITALS: BP 146/74
[2019-06-04 04:55] VITALS: BP 145/60
[2019-06-04 05:39] LABS: ABSOLUTE NEUTROPHILS 5.3 thou/uL (1.4-8.2); BASOPHILS 0.6 % (0.0-2.0); EOSINOPHILS 2.1 % (0.0-3.0); HEMATOCRIT 31.3 % (42.0-52.0); HEMOGLOBIN 9.8 gm/dL (14.0-18.0); LYMPHOCYTES 28.1 % (24.0-44.0); MCH 28.4 pg (26.0-34.0); MCHC 31.4 g/dL (28.0-37.0); MCV 90.5 fL (80.0-100.0); MONOCYTES 11.1 % (1.0-8.0); PLATELET COUNT 299 thou/uL (150-400); POLYS 58.1 % (36.0-66.0); RBC 3.46 mil/uL (4.50-6.00); RDW 15.4 % (10.5-14.5); WBC 9.2 thou/uL (4.0-11.0)
[2019-06-04 06:07] LABS: CALCIUM 8.6 mg/dL (8.5-10.1); CREATININE 0.8 mg/dL (0.7-1.3); POTASSIUM 3.4 mmol/L (3.5-5.1)
[2019-06-04 08:23] VITALS: BP 149/77
[2019-06-04 09:56] LABS: BE(vivo) 2.6 mmol/L (-2 to +3); PCO2 41.4 mmHg (35.0-45.0); PO2 74.5 mmHg (80.0-100.0); pH 7.433 (7.360-7.450); sO2 95.4 % (92.0-98.0)
--- NOTE | 2019-06-04 16:26 | NUR ---
SW reviewed chart and spoke with nursing. Pt remains on IV abx and steroids. category planner to fax updates to [facility] for review. Discharge plan is for pt to return to [facility] when medically stable. GEMMA is following to assist as needed with discharge planning.
[2019-06-04 17:48] VITALS: BP 169/83
--- NOTE | 2019-06-04 19:37 | NUR ---
ASSUMED CARE OF PATIENT AT 0700. VSS. ALERT BUT CONFUSED. AGITATION HAS GOTTEN BETTER. PATIENT BECOMES AGITATED BECAUSE HE IS INCONTINENT AND WHEN HE VOIDS OR HAS A BOWEL MOVEMENT HE WANTS OUT OF IT IMMEDIATELY. ONCE CHANGED HE IS USUALLY FINE. ONE INSTANCE OF IMPULSIVE BEHAVIOR TODAY - PATIENT TOOK OUT HIS OWN IV. NEW IV PLACED. CONTINUING TO CRUSH PILLS AND PLACE IN APPLE SAUCE, PATIENT COMPLIANT WITH MEDICATIONS. CONTINUING TO MONITOR.
[2019-06-04 21:07] VITALS: BP 154/75
--- NOTE | 2019-06-04 23:04 | NUR ---
PT REMAINS VERY IMPULSIVE, PULLING TELE AND O2 OFF. THROWING LEGS OVER SIDE RAIL ATTEMPTING TO GET OUT OF BED. PT IS HIGH FALL RISK. CALL PLACED TO DR. PASCAL AND ORDERS RECEIVED.
--- NOTE | 2019-06-05 03:31 | NUR ---
PT REMAIN COMBATIVE, IMPUSIVE. NARROWLY WITHIN INCHES OF KICKING THE AID AND I IN THE HEAD ON SEPERATE OCCASIONS. PT DIFFICULT TO REDIRECT. IT APPEARS THAT HE GETS THIS WAY EVERY TIME HE HAS AN INCONTINENCE EPISODE, PT REMAINS EXORIATED AND BROKEN DOWN IN ERICH/GROIN AND BUTTOCK AREA.
[2019-06-05 05:07] VITALS: BP 161/79
[2019-06-05 05:42] LABS: ABSOLUTE NEUTROPHILS 5.6 thou/uL (1.4-8.2); BASOPHILS 1.2 % (0.0-2.0); HEMATOCRIT 31.9 % (42.0-52.0); HEMOGLOBIN 10.2 gm/dL (14.0-18.0); LYMPHOCYTES 17.8 % (24.0-44.0); MCH 28.8 pg (26.0-34.0); MCHC 32.1 g/dL (28.0-37.0); MCV 89.7 fL (80.0-100.0); PLATELET COUNT 305 thou/uL (150-400); RBC 3.56 mil/uL (4.50-6.00); RDW 15.4 % (10.5-14.5); WBC 7.2 thou/uL (4.0-11.0)
[2019-06-05 05:42] LABS: CALCIUM 8.9 mg/dL (8.5-10.1); CREATININE 0.7 mg/dL (0.7-1.3)
[2019-06-05 06:14] LABS: POTASSIUM 4.4 mmol/L (3.5-5.1)
[2019-06-05 08:05] VITALS: BP 169/88
--- NOTE | 2019-06-05 13:18 | NUR ---
GEMMA reviewed chart and spoke with nursing and attending physician. Pt remains on IV Abx and steroids. Pt to have a video swallow today. Attending physician's [employer] OPER[employer] SUPERVISOR will discuss plan of care with pt's dtr. GEMMA left voice message for Ailyn in admissions at [facility]. Plan is for pt to return to [facility] when medically stable. GEMMA is following to assist as needed with discharge planning.
--- NOTE | 2019-06-05 18:41 | NUR ---
ASSUMED CARE OF PATIENT AT 0700. VSS. ALERT AND CONFUSED. AGITATED OFTEN. PATIENT CONTINUES TO HAVE WHEEZING AND IS ON 2L NASAL CANNULA. PATIENT SOMETIMES REFUSES OXYGEN AND HAS TO BE REEDUCATED ON OXYGEN NEEDS. PATIENT INCONTINENT OF BOWEL AND BLADDER. PATIENT RECIEVED ENEMA TODAY AFTER NURSING STAFF NOTICED SOME IMPACTED STOOL IN RECTUM. PHYSICIAN NOTIFED AND ORDERED ENEMA. ENEMA GIVEN AND SMALL AMOUNTS OF STOOL EMPTYING. PATIENT'S DAUGHTER VISITS DAILY AND LIKE TO BE UPDATED BY PROVIDER IN THE MORNINGS. CONTINUING TO MONITOR.
[2019-06-05 20:30] VITALS: BP 165/78
--- NOTE | 2019-06-06 03:09 | NUR ---
ASSUMED PT CARE AROUND 1900. PT IS CONFUSED. HE CAN BE IMPULSIVE AND RESTLESS AT TIMES. HE IS OCCASSIONALLY COMBATIVE WITH NURSING STAFF. PT SLEPT OFF AND ON DURING THE NIGHT. HE IS FREQUENTLY INCONTINENT OF URINE. FALL PRECAUTIONS IN PLACE. PT BECOMES SOA W/ EXERTION AND RESTLESSNESS. PROGRESSING SLOWLY TOWARD POC GOALS. WILL CONTINUE TO MONITOR FURTHER.
[2019-06-06 04:20] VITALS: BP 145/71
[2019-06-06 05:03] LABS: HEMATOCRIT 32.6 % (42.0-52.0); HEMOGLOBIN 10.6 gm/dL (14.0-18.0); MCH 28.8 pg (26.0-34.0); MCHC 32.5 g/dL (28.0-37.0); MCV 88.7 fL (80.0-100.0); RBC 3.68 mil/uL (4.50-6.00); RDW 15.2 % (10.5-14.5); WBC 10.6 thou/uL (4.0-11.0)
[2019-06-06 05:07] LABS: CALCIUM 8.5 mg/dL (8.5-10.1); CREATININE 0.8 mg/dL (0.7-1.3); POTASSIUM 3.8 mmol/L (3.5-5.1)
[2019-06-06 08:20] VITALS: BP 160/84
[2019-06-06 11:45] VITALS: BP 149/76
--- NOTE | 2019-06-06 13:59 | NUR ---
GEMMA reviewed chart and spoke with nursing and attending physician's DYE STAND LOADER. Pt's dtr is agreeable with a hospice evaluation. Plan is for pt to return to [facility] with hospice. GEMMA left voice message for Ailyn in admissions at [facility] to provide update. Received call back stating that [facility] uses [facility] for a majority of their residents. GEMMA left voice message for pt's dtr, Chyna, to provide update. Awaiting call back at this time, in order to send hospice referral. GEMMA is following to assist as needed with discharge planning.
[2019-06-06 16:18] VITALS: BP 166/86
--- NOTE | 2019-06-06 16:18 | NUR ---
Assumed care approx. 0700 this AM. Patient oriented to person. Patient has been pleasantly confused and cooperative with staff. 2LNC still in place- lungs crackly and diminished. BM on BSC this AM. Pt still frequently incont of urine. Pictures taken of left buttock wound and right knee abrasion. Fungal cream applied to scooby area skin folds per wound care request. Patient turned Q2H. Patient's daughter at bedside most of the day. Case management consulted for thoughts of hospice-plan for patient to be evaluated tomorrow. Pt. slightly progressing toward plan of care goals.
[2019-06-06 22:18] VITALS: BP 151/79
--- NOTE | 2019-06-07 05:11 | NUR ---
ASSUMED CARE OF PT AT 1900. A&Ox1, PLEASANT MOST OF SHIFT. VERY [place] AND HEARING AID WOULD NOT WORK. PT BECAME CONFUSED SEVERAL TIMES, PULLED OF TELE, PULLED OFF EXTERNAL CONDOM CATH, PULLED AT IV, TOOK O2 NC OFF, TOOK GOWN OFF SEVERAL TIMES. HALDOL GIVEN 1X WITH PARTIAL RELIEF. VS STABLE. VERY SOA WITH WHEEZES WHEN TURNING OR LYING DOWN. TRYING EXTERNAL MALE CATH DUE TO RED SKIN IN PERIAREA AND ON BUTTOCKS, CONTINUING TO MONITORING. CHANGED Q 2 HRS OR PRN, TURNED Q 2H AND CREAM APPLIED. ABLE TO SLEEP FOR A 3-4 HOURS OVER NOC. SLOW PROGRESSION TOWARDS POC GOALS.
[2019-06-07 05:41] VITALS: BP 175/84
[2019-06-07 06:12] LABS: HEMATOCRIT 33.5 % (42.0-52.0); HEMOGLOBIN 10.7 gm/dL (14.0-18.0); MCH 28.4 pg (26.0-34.0); MCHC 31.8 g/dL (28.0-37.0); MCV 89.3 fL (80.0-100.0); RBC 3.75 mil/uL (4.50-6.00); RDW 15.3 % (10.5-14.5); WBC 9.6 thou/uL (4.0-11.0)
[2019-06-07 06:24] LABS: CALCIUM 8.4 mg/dL (8.5-10.1); CREATININE 0.7 mg/dL (0.7-1.3); POTASSIUM 4.1 mmol/L (3.5-5.1)
[2019-06-07] MEDS ORDERED: SEROQUEL 25 MG25 M1 PO (07:40)
[2019-06-07 07:59] VITALS: BP 168/89
--- NOTE | 2019-06-07 10:32 | NUR ---
GEMMA reviewed chart and spoke with nursing. GEMMA spoke with Kiersten in intake at [facility], who states that hospice is meeting with pt's dtr this morning at 1100 to do info visit and evaluate pt for admission to hospice. GEMMA updated attending physician's DATA TECHNICAL LEAD. SW is following to assist as needed with discharge planning.
[2019-06-07 11:26] VITALS: BP 157/76
[2019-06-07 16:00] VITALS: BP 167/92
[2019-06-07 19:35] VITALS: BP 162/84
--- NOTE | 2019-06-08 01:58 | NUR ---
PATIENT IS ADVANCING SLOWLY IN HIS CARE PLAN. VITAL SIGNS STABLE WITH PATIENT HAVING NO COMPLAINTS, NOR NURSE PERCEIVING, AND PAIN OR NAUSEA ON BEHALF OF PATIENT. ORIENTED TO SELF, PATIENT IS PLEASANTLY CONFUSED AND USUALLY OPEN TO RE DIRECTION BREATHING STABLE ON 2L NC EVIDENCED BY ASSESSMENT AND SPOT OXYGENATION CHECKS. PATIENT DOES DISCONNECT NASAL CANNULA AT TIMES. WOUND CARE PROVIDED PER DOCTOR ORDER. PATIENT IS FREQUENTLY INCONTINENT OF BLADDER AND DOES PULL AT EXTERNAL CATHETER. SWALLOW PRECAUTIONS FOLLOWED. PATIENT IS EXPECTED TO DISCHARGE TO HOSPICE TODAY. CONTINUE PLAN OF CARE.
[2019-06-08 04:15] VITALS: BP 150/67
[2019-06-08 07:53] VITALS: BP 164/87
--- NOTE | 2019-06-08 09:32 | NUR ---
Nutrition: RD deferring reassessment. PEG not desired and plan to D/C with hopsice, likely today.
--- NOTE | 2019-06-08 10:43 | NUR ---
DISCHARGE NOTE: SW reviewed chart and spoke with nursing and attending physician's HEALTH AND SAFETY COORDINATOR. Pt is stable for discharge back to [facility] today with [facility]. Discharge orders completed. master planner faxed to [facility] and [facility]. Stretcher van transportation scheduled for 1230 per facility arrangements. SW met with pt and dtr at bedside to provide update. Both are aware and agreeable with discharge plan. SW updated nursing. Chart copy requested. Nursing to call report. No further SW needs identified at this time, but is available to assist should needs arise.
[2019-06-08 11:12] VITALS: BP 148/63
--- NOTE | 2019-06-08 12:44 | NUR ---
ASSUMED CARE OF PT AT APPROX 0700. PT IS ALERT AND ORIENTED TO SELF. VERY PLEASANT. PT [place]. ASSESSMENT CHARTED. DENIES PAIN AND SOA. NAD NOTED AT THIS TIME. PT TO GO TO [facility] TODAY. FAMILY IS UPDATED ON POC AND AT BEDISE. WILL CONT. TO MONITOR.
--- NOTE | 2019-06-17 11:57 | HC ---
[facility] [address] [place] [address] CONSULTATION Name: AUGUSTODENISE E Room #: 362-P [facility]..#: [id number] Admission: 05/31/19 Attend Phys: Maria C Reed MD Discharge: 06/08/19 Date of : [birth year] Report #: [id number] THIS REPORT FOR: //name// CC: Maria C Reed DATE OF SERVICE: 06/04/2019 HISTORY OF PRESENT ILLNESS: The patient is an 89-year-old male patient who was sent to the Emergency Department from his nursing facility with weakness and acute mental status changes and fever. He was found to have urinary tract infection and left lateral lobe infiltrate and has been hospitalized. He is noted to have traumatic wounds to his right knee and a stage 3 gluteal pressure ulcer and I have been asked to see him with regard to wound care. The patient cannot provide a lot of information about himself right now. PAST MEDICAL HISTORY: Positive for history of orthostatic hypotension, syncope, repeated falls, muscle weakness, dementia, chronic kidney disease, abdominal aortic aneurysm, major depression, polyneuropathy, coronary artery disease, hypertension, COPD, some questionable history of Crohn's disease. SOCIAL HISTORY: The patient has an [id number] history of smoking 2 packs per day for 40 years. He has since quit. No alcohol use. FAMILY HISTORY: Unknown. REVIEW OF SYSTEMS: Unable to be obtained due to the patient's medical condition. MEDICATIONS: Include Cymbalta, Flomax, Florinef, Neurontin, midodrine, Symbicort, melatonin, Depakote, Mucinex, Namenda. ALLERGIES: AMOXICILLIN and PENICILLIN. PHYSICAL EXAMINATION: VITAL SIGNS: At this time include temperature 36.8, pulse 96, respiratory rate 19, blood pressure 116/93. GENERAL: This is a chronically ill-appearing male patient who appears to be in minimal distress. HEENT: Head normocephalic. Nose and throat are clear. NECK: Supple. LUNGS: Diminished. HEART: Regular, without obvious murmur. ABDOMEN: Soft, nontender. EXTREMITIES: Examination of the lower extremities demonstrates that the feet are relatively pink, warm and dry. 2+ edema noted. There is traumatic abrasion to the right knee. Additionally, there is a small stage [address] [address] CONSULTATION Name: DENISE CASAS Room #: 362-P [facility] [place] ..#: [id number] Admission: 05/31/19 Attend Phys: Maria C Reed MD Discharge: 06/08/19 Date of : [birth year] Report #: [id number] to the right gluteal region. It is relatively superficial and into the subcutaneous layers, but no exposed deep structures and no evidence of infection. LABORATORY DATA: Include sodium 148, potassium 3.4, CO2 of 29, BUN 14, creatinine 0.8. White blood cell count 9.2 with hemoglobin 9.8. CLINICAL IMPRESSION: 1. Traumatic wound to the right knee. 2. Stage 3 pressure ulcer to the left gluteal region present on admission. 3. Acute respiratory failure. 4. Dementia. 5. Urinary tract infection. RECOMMENDATIONS: At this point in time, the right knee can be left open to air. It is nearly closed. We recommended zinc oxide barrier cream to the buttocks, low air loss mattress, q.2 hour turning and positioning, PRAFO boot. He will need aggressive nutritional support, continuation of current medications. I do appreciate being asked to see him in consultation. <ELECTRONICALLY SIGNED> By: Feliciano George MD 06/17/19 [id number] Feliciano George MD /nt
== END 2019-06-08 12:59 | disposition hospice, inpatient (51) | DRG 871 ==
LOC: ER 13:32 → EROBS 16:50 → 3W 16:50
PROVIDERS: Emergency Medicine; Nurse Practitioner Adult Health; ADMIT Internal Medicine
DX: A41.9 Sepsis, unspecified organism (principal); L89.323 Pressure ulcer of left buttock, stage 3; G92 Toxic encephalopathy; J96.00 Acute respiratory failure, unspecified whether with hypoxia or hypercapnia; J69.0 Pneumonitis due to inhalation of food and vomit; N39.0 Urinary tract infection, site not specified; J44.0 Chronic obstructive pulmonary disease with (acute) lower respiratory infection; E87.0 Hyperosmolality and hypernatremia; F03.91 Unspecified dementia, unspecified severity, with behavioral disturbance; E87.6 Hypokalemia; I12.9 Hypertensive chronic kidney disease with stage 1 through stage 4 chronic kidney disease, or unspecified chronic kidney disease; R13.12 Dysphagia, oropharyngeal phase; R62.7 Adult failure to thrive; N18.9 Chronic kidney disease, unspecified; E86.0 Dehydration; G62.9 Polyneuropathy, unspecified; I71.4 Abdominal aortic aneurysm, without rupture; M13.0 Polyarthritis, unspecified; S80.911A Unspecified superficial injury of right knee, initial encounter; X58.XXXA Exposure to other specified factors, initial encounter; F32.9 Major depressive disorder, single episode, unspecified; N40.0 Benign prostatic hyperplasia without lower urinary tract symptoms; I25.10 Atherosclerotic heart disease of native coronary artery without angina pectoris; Z88.0 Allergy status to penicillin; Z88.1 Allergy status to other antibiotic agents; Z79.899 Other long term (current) drug therapy; Z87.891 Personal history of nicotine dependence; Y93.89 Activity, other specified; Y92.89 Other specified places as the place of occurrence of the external cause; Y99.8 Other external cause status; Z68.26 Body mass index [BMI] 26.0-26.9, adult
CPT/HCPCS: 10879